=== PATIENT | female | born 1945 | race Caucasian/White ===

== ENCOUNTER 2019-01-01 11:58 | Outpatient (CLI) | payer MEDICARE ==
--- NOTE | 2019-01-01 12:25 | RAD ---
XR Knee Rt 3 View HISTORY: Fall, swelling and right knee pain FINDINGS: No fracture or dislocation is identified. Degenerative changes are present. There is fullness in the suprapatellar pouch, suspicious for joint effusion.
== END 2019-01-01 11:59 | disposition home or self-care (01) ==
LOC: SCSRAD 11:58
PROVIDERS: ATTEND Family Medicine
DX: M25.061 Hemarthrosis, right knee (principal)
CPT/HCPCS: 36415; 80053; 80061; 81001; 82043; 84443; 84481; 85025

== ENCOUNTER 2023-08-25 15:53 | Outpatient (CLI) | payer MEDICARE | END 2023-08-25 15:54 | disposition home or self-care (01) | LOC: BICRAD 15:53 | PROVIDERS: ATTEND Internal Medicine Gastroenterology | DX: R10.13 Epigastric pain (principal); R19.4 Change in bowel habit; R11.0 Nausea | CPT/HCPCS: 74018 ==